=== PATIENT | female | born 1960 | race Caucasian/White ===

== ENCOUNTER → 2019-09-05 | Outpatient (CLI) | payer OTHER | END | disposition home or self-care (01) | LOC: RAD 14:51 | PROVIDERS: ATTEND Physician Assistant Surgical | DX: M48.061 Spinal stenosis, lumbar region without neurogenic claudication (principal); M43.16 Spondylolisthesis, lumbar region; M89.38 Hypertrophy of bone, other site; M47.816 Spondylosis without myelopathy or radiculopathy, lumbar region | CPT/HCPCS: 72148 ==

== ENCOUNTER → 2019-11-07 | Outpatient (CLI) | payer OTHER ==
[~2019-11-07] MED LIST: OMNIPAQUE 350 MG/ML, 75ML BOTTLE ONE
== END | disposition home or self-care (01) ==
LOC: RAD 11:12
PROVIDERS: ATTEND Registered Nurse
DX: M47.22 Other spondylosis with radiculopathy, cervical region (principal); M25.78 Osteophyte, vertebrae; M48.02 Spinal stenosis, cervical region; I10 Essential (primary) hypertension; Z98.890 Other specified postprocedural states
CPT/HCPCS: 70496; 72040; Q9967

== ENCOUNTER → 2019-11-07 | Outpatient (CLI) | payer OTHER | END | disposition home or self-care (01) | LOC: RAD 11:42 | PROVIDERS: ATTEND Registered Nurse | DX: M47.22 Other spondylosis with radiculopathy, cervical region (principal); M48.02 Spinal stenosis, cervical region; M43.16 Spondylolisthesis, lumbar region; M48.061 Spinal stenosis, lumbar region without neurogenic claudication; M47.814 Spondylosis without myelopathy or radiculopathy, thoracic region; I10 Essential (primary) hypertension; I67.1 Cerebral aneurysm, nonruptured | CPT/HCPCS: 72141 ==

== ENCOUNTER → 2020-03-20 | Outpatient (CLI) | payer OTHER ==
[~2020-03-20] MED LIST changes: +ESTR1TAB15 PO; +HYDR25TA6 PO; +LISD50CA3 PO; +METO-99 PO; -OMNIPAQUE 350 MG/ML, 75ML BOTTLE ONE
[2020-03-20 11:45] LABS: BASOPHILS # (AUTO) 0.04 x10^3/uL (0-0.1); BASOPHILS % (AUTO) 1 % (0-1); EOSINOPHILS # (AUTO) 0.08 x10^3/uL (0-0.4); EOSINOPHILS % (AUTO) 1 % (1-7); LYMPHOCYTES # (AUTO) 2.78 x10^3/uL (1-3.4); LYMPHOCYTES % (AUTO) 38 % (22-44); MD NO; MEAN CORPUSCULAR HEMOGLOBIN 30.8 pg (27.0-34.8); MEAN CORPUSCULAR HGB CONC 33.9 g/dL (32.4-35.8); MEAN CORPUSCULAR VOLUME 90.9 fL (80-100); MEAN PLATELET VOLUME 7.2 fL (7.4-10.4); MONOCYTES # (AUTO) 0.46 x10^3/uL (0.2-0.8); MONOCYTES % (AUTO) 6 % (2-9); NEUTROPHILS # (AUTO) 3.87 x10^3/uL (1.8-6.8); NEUTROPHILS % (AUTO) 54 % (42-75); PLATELET COUNT 314 x10^3/uL (130-400); RED BLOOD COUNT 4.84 x10^6/uL (3.82-5.3); RED CELL DISTRIBUTION WIDTH 12.7 % (9.6-15.2)
[2020-03-20 11:56] LABS: INTERNATIONAL NORMALIZED RATIO 0.97 (0.93-1.1)
[2020-03-20 11:59] LABS: ALBUMIN 3.9 g/dL (3.4-5.0); ANION GAP 7 mmol/L (5-15); CALCIUM 9.3 mg/dL (8.5-10.1); CHLORIDE 104 mmol/L (98-107)
[2020-03-20 12:03] LABS: ALANINE AMINOTRANSFERASE 34 U/L (12-78); ALKALINE PHOSPHATASE 61 U/L (45-117); BILIRUBIN,TOTAL 0.6 mg/dL (0.2-1.0); CREATININE 0.64 mg/dL (0.55-1.02); TOTAL PROTEIN 7.7 g/dL (6.4-8.2)
[2020-03-20 12:04] LABS: MICROSCOPIC NOT IND
== END | disposition home or self-care (01) ==
LOC: STAR 09:49
PROVIDERS: ATTEND Neurological Surgery
DX: Z01.818 Encounter for other preprocedural examination (principal); M48.16 Ankylosing hyperostosis [Forestier], lumbar region; R00.1 Bradycardia, unspecified; I25.89 Other forms of chronic ischemic heart disease
CPT/HCPCS: 36415; 80053; 81003; 85025; 85610; 85730; 93005

== ENCOUNTER → 2020-03-23 | Outpatient (CLI) | payer OTHER | END | disposition home or self-care (01) | LOC: STAR 15:22 | PROVIDERS: ATTEND Anesthesiology | DX: Z01.812 Encounter for preprocedural laboratory examination (principal); Z20.828 Contact with and (suspected) exposure to other viral communicable diseases | CPT/HCPCS: 36415; 87635 ==

== ENCOUNTER 2020-03-27 09:03 | Inpatient (IN) | payer OTHER ==
[~2020-03-27] VITALS: Ht 165.1 cm; Wt 69.5 kg
[~2020-03-27 09:03] MED LIST changes: +BACITRACIN 50,000 UNIT ONE; +BUPIVACAINE/PF 0.5% ONE; +EPINEPHRINE 1 MG/ML, 1ML ONE; +MINERAL OIL 10 ML VIAL MC ONE; +VANCOMYCIN 1,000 MG ONE
[2020-03-27] MEDS ORDERED: LACTATED RINGERS 1,000 ML IV SCH (10:09)
[2020-03-27] MEDS ORDERED: CHLORHEXIDINE 15 ML UDC ONE (10:16)
[2020-03-27] MEDS ORDERED: CHLORHEXIDINE 15 ML UDC MM ONE (10:30)
[2020-03-27 10:58] LABS: ANION GAP 5 mmol/L (5-15); CALCIUM 8.7 mg/dL (8.5-10.1); CHLORIDE 107 mmol/L (98-107); CREATININE 0.62 mg/dL (0.55-1.02)
[2020-03-27] MEDS ORDERED: MIDAZOLAM 1 MG/ML, 2ML ONE (11:57)
[2020-03-27] MEDS ORDERED: FENTANYL PF 250 MCG/5ML ONE (12:00)
[2020-03-27] MEDS ORDERED: CEFAZOLIN 1,000 MG ONE ×2 (12:10→12:27)
[2020-03-27] MEDS ORDERED: DEXAMETHASONE 4 MG/ML, 1ML ONE ×2 (12:10→12:23)
[2020-03-27] MEDS ORDERED: ONDANSETRON 2MG/ML, 2ML ONE ×2 (12:10→12:23)
[2020-03-27] MEDS ORDERED: PROPOFOL 10 MG/ML, 20ML ONE (12:23)
[2020-03-27] MEDS ORDERED: EPHEDRINE 50 MG/ML, 1ML ONE (12:28)
[2020-03-27] MEDS ORDERED: ONDANSETRON 2MG/ML, 2ML IVPush PRN (13:00)
[2020-03-27] MEDS ORDERED: LABETALOL 5MG/ML, 20ML IV PRN (13:00)
[2020-03-27] MEDS ORDERED: MIDAZOLAM 1 MG/ML, 2ML IV PRN (13:00)
[2020-03-27] MEDS ORDERED: OXYcodone 5 MG/5 ML ORAL.SOL UDC PO PRN (13:00)
[2020-03-27] MEDS ORDERED: FENTANYL PF 100 MCG/2ML IV PRN (13:00)
[2020-03-27] MEDS ORDERED: HYDROmorphone 1 MG/ML, 1ML INJ IVPush PRN (13:00)
[2020-03-27] MEDS ORDERED: ACETAMINOPHEN 325 MG TABLET PO PRN (13:00)
[2020-03-27] MEDS ORDERED: DIAZEPAM 5 MG/ML, 2ML IVPush PRN (13:00)
[2020-03-27] MEDS ORDERED: PROMETHAZINE 12.5 MG SUPP PR PRN (13:00)
[2020-03-27] MEDS ORDERED: PROMETHAZINE 25 MG/ML, 1ML IVPush PRN (13:00)
[2020-03-27] MEDS ORDERED: MEPERIDINE/PF 25MG/0.5ML IVPush PRN (13:00)
[2020-03-27] MEDS ORDERED: EPHEDRINE 50 MG/ML, 1ML IVPush PRN (13:00)
[2020-03-27] MEDS ORDERED: hydrALAzine 20 MG/ML, 1ML IV PRN (13:00)
[2020-03-27] MEDS ORDERED: DIPHENHYDRAMINE 50 MG/ML, 1ML IVPush PRN (13:00)
[2020-03-27] MEDS ORDERED: ALBUTEROL SULFATE 2.5 MG/3 ML NPPB PRN (13:00)
[2020-03-27] MEDS ORDERED: SUGAMMADEX 200 MG/2 ML IVPush ONE (14:45)
[2020-03-27] MEDS ORDERED: METHOCARBAMOL 1,000 MG in DEXTROSE 5% 100 ML IV ONE (15:30)
[2020-03-27] MEDS ORDERED: FENTANYL PF 100 MCG/2ML ONE (15:58)
[2020-03-27] MEDS ORDERED: BISACODYL 10 MG SUPP PR PRN (17:30)
[2020-03-27] MEDS ORDERED: ONDANSETRON 2MG/ML, 2ML IV PRN (17:30)
[2020-03-27] MEDS ORDERED: PROMETHAZINE 25 MG/ML, 1ML IM PRN (17:30)
[2020-03-27] MEDS ORDERED: DIPHENHYDRAMINE 50 MG/ML, 1ML IM PRN (17:30)
[2020-03-27] MEDS ORDERED: MAGNESIUM HYDROXIDE 8%, 30ML UDC PO PRN (17:30)
[2020-03-27] MEDS ORDERED: OXYcodone IR 5MG TABLET PO PRN (17:30)
[2020-03-27] MEDS ORDERED: NS + 20MEQ KCL 1,000 ML IV SCH (17:30)
[2020-03-27] MEDS ORDERED: morphine SULFATE 10 MG/ML, 1ML IV PRN (17:30)
[2020-03-27] MEDS ORDERED: CEFAZOLIN PMX 1GM/50ML 50 ML IVPB SCH (19:00)
[2020-03-27] MEDS: CEFAZOLIN PMX 1GM/50ML 50 ML IVPB SCH (20:00)
[2020-03-27 20:44] VITALS: BP 122/76
[2020-03-27 21:45] VITALS: BP 117/74
[2020-03-28] MEDS: DIPHENHYDRAMINE 25 MG CAPSULE PO PRN ×2 (00:26→22:08)
[2020-03-28 00:52] VITALS: BP 95/60
[2020-03-28] MEDS: CEFAZOLIN PMX 1GM/50ML 50 ML IVPB SCH (03:53)
[2020-03-28 04:15] VITALS: BP 103/67
[2020-03-28 05:38] LABS: MEAN CORPUSCULAR HEMOGLOBIN 30.7 pg (27.0-34.8); MEAN CORPUSCULAR HGB CONC 33.1 g/dL (32.4-35.8); MEAN PLATELET VOLUME 6.4 fL (7.4-10.4); PLATELET COUNT 270 x10^3/uL (130-400); RED BLOOD COUNT 3.44 x10^6/uL (3.82-5.3); RED CELL DISTRIBUTION WIDTH 13.4 % (9.6-15.2)
[2020-03-28 05:56] LABS: CHLORIDE 106 mmol/L (98-107)
[2020-03-28 06:01] LABS: ANION GAP 8 mmol/L (5-15); CALCIUM 8.3 mg/dL (8.5-10.1); CREATININE 0.69 mg/dL (0.55-1.02)
[2020-03-28 06:08] LABS: BASOPHILS # (AUTO) 0.04 x10^3/uL (0-0.1); BASOPHILS % (AUTO) 0 % (0-1); EOSINOPHILS % (AUTO) 0 % (1-7); LYMPHOCYTES # (AUTO) 1.73 x10^3/uL (1-3.4); LYMPHOCYTES % (AUTO) 14 % (22-44); MD SCAN; MONOCYTES % (AUTO) 6 % (2-9); NEUTROPHILS # (AUTO) 9.93 x10^3/uL (1.8-6.8); NEUTROPHILS % (AUTO) 80 % (42-75)
[2020-03-28 06:22] VITALS: BP 95/60
[2020-03-28] MEDS ORDERED: HYDROCHLOROTHIAZIDE 25 MG TABLET PO SCH (09:00)
[2020-03-28] MEDS: METOPROLOL TARTRATE 100 MG TAB PO SCH (09:00)
[2020-03-28] MEDS ORDERED: METOPROLOL TARTRATE 100 MG TAB PO SCH (09:00)
[2020-03-28] MEDS: SENNA/DOCUSATE TABLET PO SCH (09:00)
[2020-03-28] MEDS: HYDROCHLOROTHIAZIDE 25 MG TABLET PO SCH (09:00)
[2020-03-28] MEDS: LISDEXAMFETAMINE DIMESYLATE 50 MG HOMEMEDPO SCH (09:00)
[2020-03-28] MEDS: ESTRADIOL 1 MG TABLET PO SCH (10:00)
[2020-03-28] MEDS: HYDROcodone/APAP 5/325 TABLET PO PRN ×3 (10:07→19:51)
[2020-03-28 14:29] VITALS: BP 100/65
[2020-03-28 19:06] VITALS: BP 114/74
[2020-03-29] MEDS: HYDROcodone/APAP 5/325 TABLET PO PRN ×4 (00:14→17:39)
[2020-03-29 00:45] VITALS: BP 110/72
[2020-03-29 04:58] LABS: BASOPHILS # (AUTO) 0.03 x10^3/uL (0-0.1); BASOPHILS % (AUTO) 0 % (0-1); EOSINOPHILS # (AUTO) 0.08 x10^3/uL (0-0.4); EOSINOPHILS % (AUTO) 1 % (1-7); LYMPHOCYTES # (AUTO) 2.87 x10^3/uL (1-3.4); LYMPHOCYTES % (AUTO) 30 % (22-44); MD NO; MEAN CORPUSCULAR HEMOGLOBIN 30.5 pg (27.0-34.8); MEAN CORPUSCULAR HGB CONC 32.9 g/dL (32.4-35.8); MEAN PLATELET VOLUME 6.1 fL (7.4-10.4); MONOCYTES # (AUTO) 0.51 x10^3/uL (0.2-0.8); MONOCYTES % (AUTO) 5 % (2-9); NEUTROPHILS # (AUTO) 6.06 x10^3/uL (1.8-6.8); NEUTROPHILS % (AUTO) 63 % (42-75); PLATELET COUNT 206 x10^3/uL (130-400); RED BLOOD COUNT 3.12 x10^6/uL (3.82-5.3)
[2020-03-29 05:04] LABS: ANION GAP 5 mmol/L (5-15); CALCIUM 7.8 mg/dL (8.5-10.1); CHLORIDE 108 mmol/L (98-107); CREATININE 0.52 mg/dL (0.55-1.02)
[2020-03-29 07:04] VITALS: BP 99/63
[2020-03-29] MEDS: METOPROLOL TARTRATE 100 MG TAB PO SCH (07:42)
[2020-03-29] MEDS: LISDEXAMFETAMINE DIMESYLATE 50 MG HOMEMEDPO SCH (07:42)
[2020-03-29] MEDS: HYDROCHLOROTHIAZIDE 25 MG TABLET PO SCH (07:42)
[2020-03-29] MEDS: SENNA/DOCUSATE TABLET PO SCH (09:47)
[2020-03-29] MEDS: ESTRADIOL 1 MG TABLET PO SCH (09:47)
[2020-03-29] MEDS: TIZANIDINE 2MG TABLET PO PRN ×2 (12:04→22:05)
[2020-03-29 13:17] VITALS: BP 99/66
[2020-03-29 19:07] VITALS: BP 96/63
[2020-03-30 00:55] VITALS: BP 94/61
[2020-03-30] MEDS: DIPHENHYDRAMINE 25 MG CAPSULE PO PRN (01:46)
[2020-03-30] MEDS: HYDROcodone/APAP 5/325 TABLET PO PRN ×2 (04:59→08:48)
[2020-03-30 05:55] LABS: BASOPHILS # (AUTO) 0.03 x10^3/uL (0-0.1); BASOPHILS % (AUTO) 0 % (0-1); EOSINOPHILS % (AUTO) 1 % (1-7); LYMPHOCYTES # (AUTO) 2.56 x10^3/uL (1-3.4); LYMPHOCYTES % (AUTO) 33 % (22-44); MD NO; MEAN CORPUSCULAR HEMOGLOBIN 30.7 pg (27.0-34.8); MEAN CORPUSCULAR HGB CONC 33.1 g/dL (32.4-35.8); MEAN PLATELET VOLUME 6.6 fL (7.4-10.4); MONOCYTES # (AUTO) 0.56 x10^3/uL (0.2-0.8); MONOCYTES % (AUTO) 7 % (2-9); NEUTROPHILS # (AUTO) 4.62 x10^3/uL (1.8-6.8); NEUTROPHILS % (AUTO) 59 % (42-75); PLATELET COUNT 193 x10^3/uL (130-400); RED BLOOD COUNT 2.94 x10^6/uL (3.82-5.3); RED CELL DISTRIBUTION WIDTH 13.3 % (9.6-15.2)
[2020-03-30 06:05] LABS: CHLORIDE 107 mmol/L (98-107)
[2020-03-30 06:09] LABS: ANION GAP 6 mmol/L (5-15); CALCIUM 7.9 mg/dL (8.5-10.1); CREATININE 0.49 mg/dL (0.55-1.02)
[2020-03-30 07:35] VITALS: BP 102/69
[2020-03-30] MEDS: HYDROCHLOROTHIAZIDE 25 MG TABLET PO SCH (08:14)
[2020-03-30] MEDS: METOPROLOL TARTRATE 100 MG TAB PO SCH (08:14)
[2020-03-30] MEDS: LISDEXAMFETAMINE DIMESYLATE 50 MG HOMEMEDPO SCH (08:14)
[2020-03-30] MEDS: SENNA/DOCUSATE TABLET PO SCH (08:14)
[2020-03-30] MEDS: ESTRADIOL 1 MG TABLET PO SCH (08:14)
== END 2020-03-30 09:53 | disposition home or self-care (01) | DRG 460 ==
LOC: OUT 09:03 → 4NW 16:49 → OUT 16:54 → DCLOUNGE 03-30 09:47
PROVIDERS: ADMIT Neurological Surgery; ATTEND Neurological Surgery
PROC: 0SG0071 Fusion of Lumbar Vertebral Joint with Autologous Tissue Substitute, Posterior Approach, Posterior Column, Open Approach (ICD-10-PCS; principal; 2020-03-27 12:00)
DX: M48.061 Spinal stenosis, lumbar region without neurogenic claudication (principal); M43.16 Spondylolisthesis, lumbar region; I10 Essential (primary) hypertension; I95.9 Hypotension, unspecified
CPT/HCPCS: 36415; 72100; S0020; 80048; 85025; 86850; 86900; C1713; C1776; G0378; J0171; J0690; J1100; J2250; J2270; J2405; J2704; J3010; J3370; C1762; J1200; J2800; J7120; Q0163

== ENCOUNTER → 2020-05-08 | Outpatient (CLI) | payer OTHER ==
[~2020-05-08] MED LIST changes: -BACITRACIN 50,000 UNIT ONE; -BUPIVACAINE/PF 0.5% ONE; -EPINEPHRINE 1 MG/ML, 1ML ONE; -MINERAL OIL 10 ML VIAL MC ONE; -VANCOMYCIN 1,000 MG ONE
== END | disposition home or self-care (01) ==
LOC: RAD 15:11
PROVIDERS: ATTEND Registered Nurse
DX: M51.37 Other intervertebral disc degeneration, lumbosacral region (principal); M43.16 Spondylolisthesis, lumbar region
CPT/HCPCS: 72100

== ENCOUNTER → 2020-11-27 | Outpatient (CLI) | payer OTHER | END | disposition home or self-care (01) | LOC: CFH 08:50 | PROVIDERS: ATTEND Physician Assistant | DX: N63.21 Unspecified lump in the left breast, upper outer quadrant (principal) | CPT/HCPCS: 76642; 77062; 77066; G0279 ==

== ENCOUNTER → 2020-12-13 | Outpatient (CLI) | payer OTHER | END | disposition home or self-care (01) | LOC: CFH 08:53 | PROVIDERS: ATTEND Neurological Surgery | DX: M51.37 Other intervertebral disc degeneration, lumbosacral region (principal); M43.16 Spondylolisthesis, lumbar region; M50.33 Other cervical disc degeneration, cervicothoracic region; M50.13 Cervical disc disorder with radiculopathy, cervicothoracic region | CPT/HCPCS: 72050; 72110 ==